=== PATIENT | female | born 1985 | race Two or more races ===

== ENCOUNTER 2022-06-23 22:03 | Emergency (ER) | payer MEDICAID ==
[~2022-06-23] VITALS: Ht 172.7 cm; Wt 71.7 kg
[~2022-06-23 22:03] MED LIST: ESOM20CA PO
[2022-06-23] MEDS ORDERED: LIDOCAINE HCL 2% 20 ML VIAL ONE (22:22)
--- NOTE | 2022-06-23 22:22 | NUR ---
pt walked to room 3 c/o laceration to right wrist and right lower extrem states punched a wall two hours prior to arrival.
[2022-06-23] MEDS ORDERED: LIDOCAINE HCL 2% 20 ML VIAL IJ ONE (22:30)
[2022-06-23] MEDS ORDERED: BACITRACIN ZINC OINT 15 GM TUBE ONE (23:13)
[2022-06-23] MEDS ORDERED: BACITRACIN ZINC OINT 15 GM TUBE TOP ONE (23:15)
== END 2022-06-23 23:20 | disposition home or self-care (01) ==
LOC: ER 22:03
DX: S51.811A Laceration without foreign body of right forearm, initial encounter (principal); S81.811A Laceration without foreign body, right lower leg, initial encounter; W25.XXXA Contact with sharp glass, initial encounter; Y93.89 Activity, other specified; Y92.89 Other specified places as the place of occurrence of the external cause; F41.9 Anxiety disorder, unspecified
CPT/HCPCS: 99284; 12032; 12001; J3490; A4663

== ENCOUNTER 2022-08-30 22:56 | Emergency (ER) | payer MEDICAID ==
[~2022-08-30] VITALS: Ht 170.2 cm; Wt 65.8 kg
[2022-08-30 23:50] LABS: HEMATOCRIT 36.6 % (31.2-41.9); MEAN CORPUSCULAR HEMOGLOBIN 30.6 uug (24.7-32.8); MEAN CORPUSCULAR VOLUME 93.2 fL (75.5-95.3); PLATELET COUNT (AUTO) 339 K/uL (179-408)
[2022-08-30 23:58] LABS: CARBON DIOXIDE 25 mmol/L (21-32); CHLORIDE 108 mmol/L (98-107); CREATININE 0.8 mg/dL (0.6-1.3); GLUCOSE 86 mg/dL (74-106); POTASSIUM 3.9 mmol/L (3.5-5.1); UREA NITROGEN, BLOOD 8 mg/dL (7-18)
[2022-08-31] LABS: *BILIRUBIN,URIN NEGATIVE (NEGATIVE); *BLOOD, URINE NEGATIVE (NEGATIVE); *CLARITY,URINE CLEAR (CLEAR); *COLOR,URINE YELLOW (YELLOW); *KETONES,URINE NEGATIVE (NEGATIVE); *UROBILINOGEN,URINE 0.2 E.U./dl (NORMAL); LEUKOCYTE ESTERASE ,URINE 1+ (NEGATIVE); NITRITE, URINE NEGATIVE (NEGATIVE); PH,URINE 7.5 (5.0-8.0); UGLUCOSE NEGATIVE (NEGATIVE)
[2022-08-31 00:03] LABS: ALANINE AMINOTRANSFERASE 19 U/L (14-59); ALKALINE PHOSPHATASE 54 U/L (50-136); ASPARTATE AMINOTRANSFERASE 12 U/L (15-37); BILIRUBIN,DIRECT < 0.1 mg/dL (0.0-0.2); BILIRUBIN,TOTAL 0.2 mg/dL (0.2-1.0); TOTAL PROTEIN, SERUM 7.7 g/dL (6.4-8.2)
[2022-08-31 00:04] LABS: *URINE HCG, QUAL NEGATIVE (NEGATIVE)
[2022-08-31 00:05] LABS: ACETAMINOPHEN < 10.0 ug/mL (10-30)
[2022-08-31 00:13] LABS: ETHANOL 179 MG/DL (0-0)
[2022-08-31 00:30] LABS: *AMPHETAMINE, URINE NEGATIVE (NEGATIVE); *CANNABINOID, URINE POSITIVE (NEGATIVE); *COCCAINE, URINE NEGATIVE (NEGATIVE); *OPIATE, URINE NEGATIVE (NEGATIVE); *PHENCYCLIDINE SCREEN,URINE NEGATIVE (NEGATIVE)
[2022-08-31 01:58] LABS: RBC,URINE NONE SEEN /HPF (0-3); YEAST,URINE FEW /HPF (NONE SEEN)
[2022-08-31 02:00] LABS: BACTERIA,URINE MANY /HPF (NONE SEEN); SQUAMOUS EPITHELIAL CELL,UR MANY /HPF (NONE SEEN)
[2022-08-31 02:01] LABS: TRICHOMONAS,URINE MODERATE /HPF (NONE SEEN)
--- NOTE | 2022-08-31 05:02 | NUR ---
Patient sleeping with no distress noted.
[2022-08-31] MEDS ORDERED: ONDANSETRON ODT 4 MG TAB.RAPDIS ONE (07:00)
[2022-08-31] MEDS ORDERED: METRONIDAZOLE 500 MG TABLET ONE (07:01)
[2022-08-31] MEDS: ONDANSETRON ODT 4 MG TAB.RAPDIS SL ONE (07:04)
[2022-08-31] MEDS: METRONIDAZOLE 500 MG TABLET PO ONE (07:04)
--- NOTE | 2022-08-31 08:42 | NUR ---
Discharge isntructions reviewed with patient. Verbalzied understanding to follow up with [facility]. Provider address and phone number provided. Patient left room A/O x 4 ambulatory with steady gait.
== END 2022-08-31 08:43 | disposition home or self-care (01) ==
LOC: ER 23:11
DX: T51.0X1A Toxic effect of ethanol, accidental (unintentional), initial encounter (principal); G92.8 Other toxic encephalopathy; Y90.6 Blood alcohol level of 120-199 mg/100 ml; Y92.89 Other specified places as the place of occurrence of the external cause; A59.00 Urogenital trichomoniasis, unspecified; F19.90 Other psychoactive substance use, unspecified, uncomplicated; Z20.822 Contact with and (suspected) exposure to COVID-19; M50.30 Other cervical disc degeneration, unspecified cervical region
CPT/HCPCS: 36415; 70450; 72125; 84703; 85025; 87086; G0480; Q0162

== ENCOUNTER 2023-07-23 04:18 | Emergency (ER) | payer OTHER ==
[~2023-07-23] VITALS: Ht 172.7 cm; Wt 62.6 kg
[2023-07-23] MEDS ORDERED: LORA0.5T48 PO ×2 (04:53→06:34)
[2023-07-23 06:43] VITALS: BP 140/60; TEMP 98; O2SAT 99
== END 2023-07-23 06:43 | disposition home or self-care (01) ==
LOC: ER 04:22
DX: F41.9 Anxiety disorder, unspecified (principal); F10.10 Alcohol abuse, uncomplicated; F17.210 Nicotine dependence, cigarettes, uncomplicated; Z88.5 Allergy status to narcotic agent; Z88.8 Allergy status to other drugs, medicaments and biological substances; Z79.899 Other long term (current) drug therapy; Y90.6 Blood alcohol level of 120-199 mg/100 ml
CPT/HCPCS: 36415; A4663; G0480